=== PATIENT | male | born 1990 | race Caucasian/White ===

== ENCOUNTER 2021-03-29 19:51 | Emergency (ER) | payer OTHER ==
[~2021-03-29] VITALS: Ht 167.6 cm; Wt 72.6 kg
[2021-03-30 00:47] VITALS: BP 120/79
== END 2021-03-30 01:13 | disposition home or self-care (01) ==
LOC: ER 19:54
DX: U07.1 COVID-19 (principal)
CPT/HCPCS: 36415; 71045; 87426